=== PATIENT | female | born 1960 | race Caucasian/White ===

== ENCOUNTER → 2018-04-01 12:31 | Outpatient (CLI) | payer BC ==
[2014-02-01 13:46] VITALS: BMI 18.5
[~2018-04-01 12:31] MED LIST: CASCARA SAGRADA PO; EFFEXOR25 MG PO; IBUPROFEN600 MG PO; IMITREX100 MG PO; NORCO 10/325 TA1 TA1 PO; PERCOCET 5/3251 TA1 PO; STOOL SOFTENER240 MG PO; XANAX1 MG PO
== END | disposition home or self-care (01) ==
LOC: D.MRI 12:31
DX: G44.52 New daily persistent headache (NDPH) (principal)